=== PATIENT | female | born 1955 | race Caucasian/White ===

== ENCOUNTER 2020-05-19 15:01 | Emergency (ER) | payer MEDICARE, SELFPAY ==
--- NOTE | ~2020-05-19 | XR_ITS ---
EXAMINATION: XR chest 1V portable INDICATION: Cough and fever TECHNIQUE: Portable AP chest at 1946 hours COMPARISON: None available FINDINGS: The lungs are free of acute opacities. There is no pleural effusion or pneumothorax. The ca rdiomediastinal silhouette is normal. IMPRESSION: 1. No acute cardiopulmonary abnormality. Reviewed, dictated and finalized at location A.
--- NOTE | ~2020-05-19 | CT_ITS ---
EXAMINATION: CT brain wo con INDICATION: Dizziness COMPARISON: None TECHNIQUE: Standard unenhanced head CT. The dose-length product (DLP) was 605.33 mGy-cm. The mA was a djusted according to patient size. Iterative reconstruction technique was employed. FINDINGS: There is no intracranial hemorrhage, acute infarction, or abnormal mass lesion. The ventric les are normal. There is no abnormal mass effect or midline shift. The shen-white matter differentiat ion is normal. The basal cisterns are patent. The orbits are normal. The paranasal sinuses, mastoids and calvarium are normal. IMPRESSION: 1. No acute intracranial abnormality. Reviewed, dictated and finalized at location A.
[2020-05-19 15:15] VITALS: BP 159/88; PULSE 67; RESP 18; TEMP 36.7; O2SAT 98
[2020-05-19 15:34] LABS: Basophils Absolute Auto 0.1 K/mm3 (0.0-0.1); Basophils Percent Auto 0.6 % (0.2-1.2); Eosinophils Absolute Auto 0.1 K/mm3 (0-0.3); Eosinophils Percent Auto 1.3 % (0-4.4); Hematocrit 41.4 % (37.0-47.0); Hemoglobin 14.6 g/dL (12.0-15.0); Immature Granulocyte Absolute 0.03 K/mm3 (0.00-0.031); Immature Granulocyte Percent A 0.3 % (0-0.5); Lymphocytes Absolute Auto 2.44 K/mm3 (0.9-3.2); Lymphocytes Percent Auto 23.5 % (18.3-44.2); Mean Corpuscular HGB Conc 35.3 g/dl (32-36); Mean Corpuscular Hemoglobin 33.2 pg (26-34); Mean Corpuscular Volume 94.1 fl (80-100); Mean Platelet Volume 9.4 fl (7.4-10.4); Monocytes Absolute Auto 0.8 K/mm3 (0.1-0.6); Monocytes Percent Auto 7.3 % (2.6-8.5); Platelet Count Result 338 k/mm3 (150-375); Red Cell Distribution Width 12.7 % (11.5-14.5); White Blood Count 10.4 K/mm3 (4.5-10.0)
[2020-05-19 15:44] LABS: INR 0.9; Prothrombin Time 12.3 Seconds (11.1-14.7)
[2020-05-19 15:45] LABS: Partial Thromboplastin Time 30.5 SECONDS (22.3-36.8)
[2020-05-19 15:47] LABS: Lactic Acid Reflex 1.3 mmol/L (0.7-2.1)
[2020-05-19 15:51] LABS: Alanine Aminotransferase 23 U/L (4-35); Albumin Level 4.3 g/dL (3.5-5.1); Alkaline Phosphatase 91 U/L (38-126); Aspartate Amino Transferase 34 U/L (14-36); Bilirubin,Total 0.5 mg/dL (0.2-1.3); Blood Urea Nitrogen 8 mg/dL (7-17); CRP < 0.5 mg/dL (<1.0); Calcium 9.2 mg/dL (8.4-10.2); Carbon Dioxide 25 mmol/L (22-30); Chloride 95 mmol/L (98-107); Estimated CRCL calculation 58 ml/min; Estimated Glomerular Filt Rate > 60; Glucose 99 mg/dL (65-105); Potassium 3.6 mmol/L (3.4-5.0); Sodium 129 mmol/L (137-145)
[2020-05-19 19:18] VITALS: BP 170/85; PULSE 56; RESP 18; O2SAT 100
[2020-05-19 19:37] LABS: Add Urine Microscopic? NO; Appearance Urine Clear (Clear); Bacteria Urine Trace /hpf; Bilirubin Urine Negative (Negative); Blood Urine Negative (Negative); Color Urine Straw (Yellow); Glucose Urine UA Negative (Negative); Ketones Urine Negative (Negative); Leukocyte Esterase Ur Negative LEU/UL (Negative); Nitrate Urine Negative (Negative); Protein Urine Negative (Negative); RBC Urine 0-2 /hpf (0-2); Specific Grav Ur 1.005 (1.001-1.035); Squamous Epithelial Cell Urine Few /hpf (Few); Urobilinogen Urine Negative mg/dL (<2.0); WBC Urine 0-3 /hpf
--- NOTE | 2020-05-19 19:52 | ED.GENADULT ---
HPI - General Adult General Chief complaint: Fever Stated complaint: fever, dizzy, nausea Time Seen by Provider: 05/19/20 19:14 History of Present Illness HPI narrative: Patient is a 64 y/o female complaining of intermittent fever for 2 weeks. She states that her temp is up to 102. She usually take Aspirin and it bring the fever down. She also has some mild headache and dizziness. She denies any sore throat, cough, abdominal pain, vomiting or dysuria. She state that her PCP instructed her to come to ED for evaluation of possible COVID. Related Data Allergies Allergy/AdvReac Type Severity Reaction Status Date / Time renéeclin Allergy Hives Uncoded 05/19/20 20:51 Review of Systems Constitutional: Constitutional: Reports chills, Reports fever(s), Reports headache(s) and Denies weakness Eyes: Eyes: Denies blurry vision ENT: Reports headache(s) and Denies neck pain Cardiovascular: Cardiovascular: Denies chest pain and Denies dyspnea Respiratory: Respiratory: Denies cough and Denies dyspnea Gastrointestinal: Gastrointestinal: Denies abdominal pain, Denies diarrhea, Denies nausea and Denies vomiting Genitourinary: Genitourinary: Denies hematuria and Denies dysuria Musculoskeletal: Musculoskeletal: Denies back pain and Denies neck pain Neurologic: Reports headache(s) and Reports weakness Exam Const: General: no acute distress and well developed Orientation/consciousness: oriented to person, oriented to place, oriented to time and patient oriented x3 HENMT: Head: normocephalic Ears: external ears normal General nose exam: Normal external nose present Eyes: General: appearance normal, both eyes and all related structures Conjunctivae: conjunctivae normal Neck: Neck: normal visual inspection and full ROM Chest: Chest palpation & inspection: normal inspection of the chest and no tenderness Resp: Effort & Inspection: normal respiratory effort Auscultation: clear to auscultation bilaterally Cardio: Rate: regular rate Rhythm: regular rhythm GI: GI Palp: No abdominal tenderness and Yes Soft to palpation Skin: General skin exam: normal color and turgor normal Neuro: General: oriented to person, oriented to place, oriented to time and patient oriented x3 Cognition (Neuro): normal cognition Extrem: General: normal to inspection, full ROM and no pedal edema Psych: Appearance: grossly normal Mental Status: mental status grossly normal Affect: normal affect Course Vital Signs Vital signs: Vital Signs Temperature 36.7 C 05/19/20 15:15 Pulse Rate 67 05/19/20 15:15 Respiratory Rate 18 05/19/20 15:15 Blood Pressure 159/88 H 05/19/20 15:15 Pulse Oximetry 98 05/19/20 15:15 Temperature 36.6 C 05/19/20 20:57 Pulse Rate 56 L 05/19/20 22:00 Respiratory Rate 18 05/19/20 22:00 Blood Pressure 109/49 L 05/19/20 22:00 Pulse Oximetry 97 05/19/20 22:00 Medical Decision Making Vital Signs Vital Signs: Vital Signs Temperature 36.7 C 05/19/20 15:15 Pulse Rate 67 05/19/20 15:15 Respiratory Rate 18 05/19/20 15:15 Blood Pressure 159/88 H 05/19/20 15:15 Pulse Oximetry 98 05/19/20 15:15 Temperature 36.6 C 05/19/20 20:57 Pulse Rate 56 L 05/19/20 22:00 Respiratory Rate 18 05/19/20 22:00 Blood Pressure 109/49 L 05/19/20 22:00 Pulse Oximetry 97 05/19/20 22:00 Lab Data Result diagrams: 05/19/20 15:23 05/19/20 15:23 Labs: Lab Results 05/19/20 05/19/20 05/19/20 Range/Units 15:23 15:23 15:23 WBC 10.4 H (4.5-10.0) K/mm3 RBC 4.40 (4.2-5.4) M/mm3 Hgb 14.6 (12.0-15.0) g/dL Hct 41.4 (37.0-47.0) % MCV 94.1 (80-100) fl MCH 33.2 (26-34) pg MCHC 35.3 (32-36) g/dl RDW 12.7 (11.5-14.5) % Plt Count 338 (150-375) k/mm3 MPV 9.4 (7.4-10.4) fl Immature Gran % (Auto) 0.3 (0-0.5) % Neut % (Auto) 67.0 (45.5-73.1) % Lymph % (Auto) 23.5 (18.3-44.2) % Brule % (Auto) 7.3 (2.6-8
[2020-05-19] MEDS: SODIUM CHLORIDE 0.9% IV 1,000 ML 999 ML IV CONT (20:53)
[2020-05-19 20:57] VITALS: BP 143/66; PULSE 64; RESP 18; TEMP 36.6; O2SAT 98
[2020-05-19 22:00] VITALS: BP 109/49; PULSE 56; RESP 18; O2SAT 97
[2020-05-20 15:05] LABS: SARS-CoV-2 RNA PCR Negative
== END 2020-05-19 22:02 | disposition home or self-care (01) ==
PROVIDERS: Emergency Provider Emergency Medicine; PCP Physician Assistant
DX: R50.9 Fever, unspecified (principal); E87.1 Hypo-osmolality and hyponatremia; Z20.828 Contact with and (suspected) exposure to other viral communicable diseases
CPT/HCPCS: 36415; 70450; 71045; 80053; 81003; 83605; 85025; 85610; 85730; 86140; 87040; 87635; 96360; 99284; C9803; J7030; U0003